=== PATIENT | male | born 1960 | race Caucasian/White ===

== ENCOUNTER 2017-12-06 06:00 | Emergency (ER) | payer OTHER, SELFPAY ==
[2017-12-06 06:03] VITALS: BP 135/112; PULSE 112; RESP 22; TEMP 36.3; O2SAT 97; BMI 35.8
--- NOTE | 2017-12-06 06:07 | CT_ITS ---
STUDY: CT ABDOMEN AND PELVIS WITHOUT CONTRAST REASON FOR EXAM: Male, 56 years old. Left flank pain RADIATION DOSAGE (If Supplied By Facility): CTDIvol = ( 22.32 ) mGy, DLP = ( 1188.01 ) mGycm TECHNIQUE: Transaxial images were obtained from the dome of the diaphragm to the symphysis pubis without oral contrast, and without intravenous contrast. Sagittal and coronal images were reconstructed. Individualized dose optimization techniques were used for this CT. COMPARISON: None. FINDINGS: The visualized lung bases are unremarkable. The visualized portions of the heart are within normal limits. Normal liver. Normal gallbladder and extrahepatic biliary system. Normal spleen. Normal pancreas. Normal bilateral adrenal glands. 2.4 cm right renal cyst. 2.4 cm left renal cyst. 1 mm nonobstructing left renal calculus. 2 mm stone in the left bladder base or the distalmost left ureter. Changes of mild acute obstructive uropathy on the left. Normal visualized stomach. Normal small intestine. Normal colon. The appendix is visualized and appears normal. Normal abdominal aorta. Normal inferior vena cava. Normal retroperitoneum. Normal abdominal wall. Normal osseous structures. CT/Abdomen/Pelvis without Cont IMPRESSION: 2 mm stone in the left bladder base or the distalmost left ureter. Changes of mild acute obstructive uropathy on the left. Electronically Signed: Vickey Dykes MD at 6:46 EDT Tel , Service support ,
--- NOTE | 2017-12-06 06:10 | ED.DCSUM_ITS ---
- ER Visit Summary Date of Service: 12/06/17 Chief Complaint: [] Left flank pain History of Present Illness: The patient is a 56 M [] awoke with left flank pain 3 hours ago. Continuous severe pain associated with nausea. He has never had this before. Try to get comfortable. No history of kidney stones. Physical Examination: [] Vital signs reviewed General: Well-nourished well-developed Head: Normocephalic atraumatic Eyes: Pupils equal round and reactive to light extraocular movements intact ENT: TMs clear no hemotympanum no trauma Neck: Nontender full range of motion Cardiovascular: Regular tachycardia rhythm no murmurs normal S1-S2 Respiratory: No distress clear to auscultation bilaterally chest nontender Abdomen: Soft nontender nondistended normal bowel sounds no masses Back: Nontender no CVA tenderness Extremities: Nontender active range of motion ?4 extremities no trauma Skin: Normal color no trauma Neuro alert oriented cranial nerves II through XII intact normal strength sensation reflexes Test Results: [] Emergency Department Course and Treatment: [] IV established patient given IV fluids Zofran and morphine and Toradol. Lab work and CT abdomen pelvis obtained. Lab work showed no acute findings. Chronic diabetes noted with a glucose 316. CT abdomen pelvis shows a 2 mm stone in the bladder or very distal ureter. Changes noted. 1 mm stone in the left kidney. Renal cysts noted. Patient is pain-free on reevaluation. He will be discharged to follow- up. Treatment Plan: [] Disposition: [] Impression: [] Left-sided renal stone This note was generated with [employer] dictation software. It may contain incorrect words, spelling, and punctuation that were not noted in review of the chart prior to signing ED Disposition - Plan for ED Patient: Chief Complaint: Flank Pain Referrals: Zaid Garcia III, MD [Primary Care Provider] -
[2017-12-06] MEDS: 0.9% Normal Saline 1,000 ML 1000 ML IV (06:12)
[2017-12-06] MEDS: Ondansetron 4 MG/2 ML Vial IV (06:13)
[2017-12-06] MEDS: morphine 8 MG/ML Syringe IV (06:13)
[2017-12-06] MEDS: Ketorolac 30 MG/ML Syringe IV (06:13)
[2017-12-06 06:15] LABS: Absolute Lymphocyte Count 3.77 X10^3/ul (0.83-4.51); Absolute Neutrophil Count 7.5 X10^3/uL (2.0-7.7); Basophil# 0.02 X10^3/uL; Basophil% 0.2 % (0-1); Eosinophil# 0.11 X10^3/uL; Eosinophils% 0.9 % (0-5); Hematocrit 43.7 % (40-54); Hemoglobin 14.4 g/dl (13.0-16.5); Lymphocyte # 3.77 X10^3/ul (4.0); Lymphocyte % 30.2 % (19-41); Mean Corpuscular Hgb 28.7 pg (27.0-32.0); Mean Corpuscular Volume 87.1 fL (80-94); Mean Platelet Vol. 9.4 fl (6.2-12.0); Monocyte# 1.04 X10^3/uL; Monocyte% 8.3 % (0-10); Neutrophil # 7.51 X10^3/uL (2.7-7.7); Neutrophil % 60.2 % (47-70); Platelet Count 296 K/mm3 (150-450); RBC Distribution Width CV 12.7 % (11.6-14.6); RBC Distribution Width SD 40.6 fl (35.1-43.9); Red Blood Count 5.02 M/mm3 (4.6-6.2); White Blood Count 12.5 K/mm3 (4.4-11.0)
[2017-12-06 06:20] LABS: POSITIVE COUNT NO; POSITIVE DIFFERENTIAL NO; POSITIVE MORPHOLOGY NO
[2017-12-06 06:24] LABS: Anion Gap 13 (5-15); BUN 13 mg/dL (7-18); BUN/Creat Ratio 9.8 RATIO (10-20); Calcium,Total 8.9 mg/dL (8.5-10.1); Chloride 99 mmol/L (98-107); Creatinine, Serum 1.33 mg/dL (0.70-1.30); EST Glomerular Filtration Rate 59 mL/min (>60); Est Glom Filt Rate - Afr Amer 72 mL/min (>60); Estimated Creatinine Clearance 66.84 ml/min; Glucose 316 mg/dL (74-106); Potassium 3.9 mmol/L (3.5-5.1); Sodium Level 136 mmol/L (136-145)
--- NOTE | 2017-12-06 06:52 | ED.DEP ---
ED Disposition - Plan for ED Patient: Disposition: Home or Assisted Living Chief Complaint: Flank Pain Instructions: ED Stone Renal Passed Prescriptions: Ibuprofen 800 mg PO TID PRN #30 tab PRN Reason: Pain Referrals: Zaid Garcia III, MD [Primary Care Provider] - Jarrod Catherine MD [STAFF PHYSICIAN] -
[2017-12-06 07:07] VITALS: RESP 18
== END 2017-12-06 07:08 | disposition home or self-care (01) ==
PROVIDERS: Emergency Provider Emergency Medicine; Family Provider Family Medicine; PCP Family Medicine
DX: N20.0 Calculus of kidney (principal); N21.0 Calculus in bladder; N28.1 Cyst of kidney, acquired; I10 Essential (primary) hypertension; E11.9 Type 2 diabetes mellitus without complications; E66.9 Obesity, unspecified; Z79.899 Other long term (current) drug therapy; Z79.84 Long term (current) use of oral hypoglycemic drugs
CPT/HCPCS: 74176; 80048; 85025; 96361; 96374; 96375; 99283; J7030; J2405